=== PATIENT | male | born 1995 | race Caucasian/White ===

== ENCOUNTER → 2020-06-05 09:32 | Outpatient (CLI) | payer OTHER, SELFPAY ==
[2019-08-23 08:08] VITALS: BMI 27.8
[2020-06-05 12:13] LABS: Erythrocyte Sedimentation Rate 1 mm/hr (0-15)
[2020-06-05 12:15] LABS: Absolute Lymphocyte Count 1.53 X10^3/uL (0.83-4.51); Absolute Neutrophil Count 3.1 X10^3/uL (2.0-7.7); Basophil# 0.03 X10^3/uL; Basophil% 0.6 % (0-1); Eosinophil# 0.11 X10^3/uL; Eosinophils% 2.1 % (0-5); Hematocrit 42.4 % (40-54); Lymphocyte # 1.53 X10^3/ul (4.0); Lymphocyte % 29.7 % (19-41); Mean Platelet Vol. 10.2 fl (6.2-12.0); Monocyte# 0.36 X10^3/uL; NRBC Flagged by Analyzer 0 % (0-5); Neutrophil # 3.12 X10^3/uL (2.7-7.7); Neutrophil % 60.4 % (47-70); Platelet Count 197 K/mm3 (150-450); RBC Distribution Width CV 12.9 % (11.6-14.6); RBC Distribution Width SD 42.4 fl (35.1-43.9); Red Blood Count 4.66 M/mm3 (4.6-6.2); White Blood Count 5.2 K/mm3 (4.4-11.0)
[2020-06-05 12:50] LABS: Vitamin B12 1188 pg/mL (211-911)
[2020-06-05 13:05] LABS: Ferritin 57 ng/mL (26-388); Thyroid Stim Hormone (TSH) 1.63 uIU/mL (0.358-3.74)
[2020-06-06 13:07] LABS: ANTINUCLEAR ANTIBODIES DIRECT Negative (Negative)
[2020-06-08 05:06] LABS: QNTFERON TB Mitogen Value > 10.00 IU/mL (.); QNTFERON TB Nil Value 0.01 IU/mL (.); QNTFERON TB1+ Ag Value 0.01 IU/mL (.); QNTFERON TB2+ Ag Value 0.01 IU/mL (.)
[2020-06-08 07:46] LABS: QNTIFERON TB Positive Criteria Negative (Negative)
== END ==
PROVIDERS: PCP Internal Medicine; Visit Provider Family Medicine
DX: R53.83 Other fatigue (principal); R61 Generalized hyperhidrosis
CPT/HCPCS: 36415; 82607; 82627; 82728; 84403; 84443; 85025; 85652; 86038; 86480; 82626

== ENCOUNTER → 2020-06-11 09:14 | Outpatient (CLI) | payer OTHER, SELFPAY ==
[2019-08-23 08:08] VITALS: BMI 27.8
[2020-06-14 09:02] LABS: Testosterone, % Free 3.54 % (1.50-4.20); Testosterone, Free 5.24 ng/dL (5.00-21.00)
[2020-06-14 10:05] LABS: Sex Hormone-binding Globulin 34.9 nmol/L (16.5-55.9); Testosterone, Total 148 ng/dL (264-916)
== END ==
PROVIDERS: PCP Internal Medicine; Visit Provider Family Medicine
DX: R68.82 Decreased libido (principal)
CPT/HCPCS: 36415; 84270; 84402; 84403

== ENCOUNTER → 2020-06-19 10:09 | Outpatient (CLI) | payer OTHER, SELFPAY ==
[2020-06-18 13:28] VITALS: BMI 22.6
[2020-06-19 12:46] LABS: ALB/GLOB Ratio 1.3 RATIO (0.9-2.4); AST(SGOT) 37 U/L (15-37); Alanine Aminotransfer ALT/SGPT 55 U/L (16-61); Albumin, Serum 4.2 g/dL (3.2-5.0); Alkaline Phosphatase 83 U/L (45-117); Anion Gap 4 (5-15); BUN 25 mg/dL (7-18); BUN/Creat Ratio 22.5 RATIO (10-20); Calcium,Total 9.5 mg/dL (8.5-10.1); Chloride 105 mmol/L (98-107); Creatinine, Serum 1.11 mg/dL (0.70-1.30); EST Glomerular Filtration Rate 87 mL/min (>60); Est Glom Filt Rate - Afr Amer 105 mL/min (>60); Ferritin 60 ng/mL (26-388); Follicle Stimulating Hormone 2.4 mIU/mL; Globulin 3.2 g/dL (2.2-4.2); Glucose 77 mg/dL (74-106); Luteinizing Hormone 1.7 mIU/mL; Potassium 4.1 mmol/L (3.5-5.1); Prolactin 3.6 ng/mL; Protein, Total 7.4 g/dL (6.4-8.2); Sodium Level 139 mmol/L (136-145); T4 Free Direct 1.07 ng/dL (0.76-1.46)
[2020-06-22 12:07] LABS: Testosterone, Free 9.31 ng/dL (5.00-21.00)
[2020-06-22 12:30] LABS: Testosterone, % Free 3.29 % (1.50-4.20); Testosterone, Total 283 ng/dL (264-916)
== END ==
PROVIDERS: PCP Family Medicine; Referring Provider Family Medicine; Visit Provider Internal Medicine Endocrinology, Diabetes & Metabolism
DX: R79.89 Other specified abnormal findings of blood chemistry (principal)
CPT/HCPCS: 36415; 80053; 82533; 82728; 83001; 83002; 84146; 84402; 84403; 84439; 84481

== ENCOUNTER → 2021-01-14 07:36 | Outpatient (CLI) | payer OTHER, SELFPAY ==
[2020-06-18 13:28] VITALS: BMI 22.6
[2021-01-14 09:18] LABS: T4 Free Direct 1.05 ng/dL (0.76-1.46); Thyroid Stim Hormone (TSH) 2.46 uIU/mL (0.358-3.74)
[2021-01-20 03:06] LABS: Testosterone, Free 4.85 ng/dL (5.00-21.00)
[2021-01-20 08:01] LABS: Testosterone, % Free 2.62 % (1.50-4.20); Testosterone, Total 185 ng/dL (264-916)
== END ==
PROVIDERS: PCP Family Medicine; Visit Provider Internal Medicine Endocrinology, Diabetes & Metabolism
DX: R53.83 Other fatigue (principal); R79.89 Other specified abnormal findings of blood chemistry
CPT/HCPCS: 36415; 84402; 84403; 84439; 84443

== ENCOUNTER → 2021-02-07 17:41 | Outpatient (CLI) | payer OTHER, SELFPAY ==
[2021-01-21 14:23] VITALS: BMI 22.6
--- NOTE | 2021-02-07 17:42 | MRI_ITS ---
STUDY: MRI BRAIN WITH AND WITHOUT CONTRAST (ATTENTION PITUITARY GLAND) REASON FOR EXAM: Male, 25 years old. hypopituitarism -- , LOW TESTOSTERONE TECHNIQUE: Standardized multiplanar fat and water weighted pulse sequences were obtained. IV 15 cc dotarem was administered for the contrast portion of the examination. COMPARISON: None. FINDINGS: Normal size of the pituitary gland for the patient?s age and gender. Normal enhancement of the pituitary gland, without a demonstrated intrapituitary lesion. Normal infundibular stalk and suprasellar cistern. Normal optic chiasm and hypothalamus. Normal size of the ventricles and extra-axial spaces for the patient''s age. Normal white matter tracts of the supratentorial brain. There is no evidence for recent intracranial ischemia or other cause of cytotoxic edema on diffusion weighted imaging (DWI). Normal bilateral basal ganglia. Normal thalami. Normal flow voids within the major intracranial circulation suggesting patency by spin echo criteria. Normal venous enhancement. There is no enhancing intra-axial or extra-axial abnormality. There is no extra-axial fluid accumulation. Normal tectal plate and pineal gland. Normal midbrain, james and medulla. Normal cerebellum. Normal basal cisterns. Normal bilateral temporal bones. Normal bilateral internal auditory canals. No demonstrated orbital abnormality, within the constraints of a routine brain study. Normal visualized paranasal sinuses. Normal calvarium and skull base. Normal visualized upper cervical spine. Normal visualized soft tissue structures. MRI/Brain W/WO Contrast IMPRESSION: Normal unenhanced and enhanced MRI of the pituitary gland. Electronically Signed: Garry Riddle MD at 9:25 EDT Tel , Service support ,
== END ==
PROVIDERS: PCP Family Medicine; Visit Provider Internal Medicine Endocrinology, Diabetes & Metabolism
DX: E23.0 Hypopituitarism (principal)
CPT/HCPCS: 70553; A9575

== ENCOUNTER → 2021-03-08 07:37 | Outpatient (CLI) | payer OTHER, SELFPAY ==
[2021-03-08 08:08] LABS: Absolute Lymphocyte Count 2.51 X10^3/uL (0.83-4.51); Absolute Neutrophil Count 2.4 X10^3/uL (2.0-7.7); Basophil# 0.04 X10^3/uL; Basophil% 0.7 % (0-1); Eosinophil# 0.08 X10^3/uL; Eosinophils% 1.4 % (0-5); Hematocrit 43.5 % (40-54); Hemoglobin 14.1 g/dL (13.0-16.5); Lymphocyte # 2.51 X10^3/ul (0.83-4.51); Lymphocyte % 44.8 % (19-41); Mean Corp Hgb Conc 32.4 g/dL (32-36); Mean Corpuscular Hgb 28.7 pg (27.0-32.0); Mean Corpuscular Volume 88.6 fL (80-94); Mean Platelet Vol. 9.8 fl (6.2-12.0); Monocyte# 0.55 X10^3/uL; Monocyte% 9.8 % (0-10); NRBC Flagged by Analyzer 0 % (0-5); Neutrophil # 2.41 X10^3/uL (2.7-7.7); Neutrophil % 43.1 % (47-70); Platelet Count 193 K/mm3 (150-450); RBC Distribution Width CV 12.7 % (11.6-14.6); RBC Distribution Width SD 41.4 fl (35.1-43.9); Red Blood Count 4.91 M/mm3 (4.6-6.2); White Blood Count 5.6 K/mm3 (4.4-11.0)
[2021-03-14 10:09] LABS: Testosterone, Free 21.48 ng/dL (5.00-21.00)
[2021-03-14 14:11] LABS: Testosterone, % Free 2.75 % (1.50-4.20); Testosterone, Total 781 ng/dL (264-916)
== END ==
PROVIDERS: PCP Family Medicine; Referring Provider Internal Medicine Endocrinology, Diabetes & Metabolism; Visit Provider Internal Medicine Endocrinology, Diabetes & Metabolism
DX: R79.89 Other specified abnormal findings of blood chemistry (principal)
CPT/HCPCS: 36415; 84402; 84403; 85025

== ENCOUNTER 2021-08-30 11:09 | Outpatient (CLI) | payer OTHER, SELFPAY ==
[2021-08-30 11:36] LABS: Hematocrit 42.7 % (40-54); Hemoglobin 14.8 g/dL (13.0-16.5)
[2021-09-03 10:09] LABS: Testosterone, Free 12.07 ng/dL (5.00-21.00)
[2021-09-07 15:59] LABS: Testosterone, % Free 2.84 % (1.50-4.20); Testosterone, Total 425 ng/dL (264-916)
== END 2021-08-30 23:59 | disposition home or self-care (01) ==
LOC: LAB 11:11
PROVIDERS: PCP Family Medicine; Referring Provider Internal Medicine Endocrinology, Diabetes & Metabolism; Visit Provider Internal Medicine Endocrinology, Diabetes & Metabolism
DX: R79.89 Other specified abnormal findings of blood chemistry (principal)
CPT/HCPCS: 36415; 84402; 84403; 85014; 85018

== ENCOUNTER → 2022-10-22 | Outpatient (CLI) | payer OTHER, SELFPAY ==
[2022-10-22 08:26] LABS: Absolute Lymphocyte Count 2.07 X10^3/uL (0.83-4.51); Absolute Neutrophil Count 2.9 X10^3/uL (2.0-7.7); Basophil# 0.04 X10^3/uL; Basophil% 0.7 % (0-1); Eosinophil# 0.11 X10^3/uL; Hematocrit 45.8 % (40-54); Hemoglobin 15.2 g/dL (13.0-16.5); Lymphocyte # 2.07 X10^3/ul (0.83-4.51); Lymphocyte % 37.5 % (19-41); Mean Corp Hgb Conc 33.2 g/dL (32-36); Mean Corpuscular Hgb 28.4 pg (27.0-32.0); Mean Corpuscular Volume 85.6 fL (80-94); Mean Platelet Vol. 9.8 fl (6.2-12.0); Monocyte# 0.39 X10^3/uL; Monocyte% 7.1 % (0-10); NRBC Flagged by Analyzer 0 % (0-5); Neutrophil # 2.89 X10^3/uL (2.7-7.7); Neutrophil % 52.3 % (47-70); Platelet Count 231 K/mm3 (150-450); RBC Distribution Width CV 12.7 % (11.6-14.6); RBC Distribution Width SD 39.1 fl (35.1-43.9); Red Blood Count 5.35 M/mm3 (4.6-6.2); White Blood Count 5.5 K/mm3 (4.4-11.0)
[2022-10-27 13:07] LABS: Testosterone, % Free 2.86 % (1.50-4.20); Testosterone, Free 10.87 ng/dL (5.00-21.00); Testosterone, Total 380 ng/dL (264-916)
== END | disposition home or self-care (01) ==
LOC: LAB 07:58
PROVIDERS: PCP Family Medicine; Visit Provider Nurse Practitioner Family
DX: R79.89 Other specified abnormal findings of blood chemistry (principal)
CPT/HCPCS: 36415; 84402; 84403; 85025

== ENCOUNTER → 2023-08-03 | Outpatient (CLI) | payer SELFPAY ==
[2023-08-03 09:22] LABS: Absolute Lymphocyte Count 1.85 X10^3/uL (0.83-4.51); Absolute Neutrophil Count 3.2 X10^3/uL (2.0-7.7); Basophil# 0.03 X10^3/uL; Basophil% 0.5 % (0-1); Eosinophils% 1.8 % (0-5); Hematocrit 45.7 % (40-54); Hemoglobin 15.7 g/dL (13.0-16.5); Lymphocyte # 1.85 X10^3/ul (0.83-4.51); Lymphocyte % 33.1 % (19-41); Mean Corp Hgb Conc 34.4 g/dL (32-36); Mean Corpuscular Hgb 28.9 pg (27.0-32.0); Mean Platelet Vol. 10.2 fl (6.2-12.0); Monocyte# 0.44 X10^3/uL; Monocyte% 7.9 % (0-10); NRBC Flagged by Analyzer 0 % (0-5); Neutrophil # 3.16 X10^3/uL (2.7-7.7); Neutrophil % 56.5 % (47-70); Platelet Count 201 K/mm3 (150-450); RBC Distribution Width CV 12.1 % (11.6-14.6); RBC Distribution Width SD 36.6 fl (35.1-43.9); Red Blood Count 5.44 M/mm3 (4.6-6.2); White Blood Count 5.6 K/mm3 (4.4-11.0)
[2023-08-10 18:07] LABS: Testosterone, % Free 3.13 % (1.50-4.20); Testosterone, Free 11.42 ng/dL (5.00-21.00); Testosterone, Total 365 ng/dL (264-916)
== END | disposition home or self-care (01) ==
LOC: LAB 08:53
PROVIDERS: Referring Provider Internal Medicine Endocrinology, Diabetes & Metabolism; Visit Provider Internal Medicine Endocrinology, Diabetes & Metabolism
DX: R79.89 Other specified abnormal findings of blood chemistry (principal)
CPT/HCPCS: 36415; 84402; 84403; 85025